=== PATIENT | male | born 1955 | race Caucasian/White ===

== ENCOUNTER 2018-08-18 10:14 | Emergency (ER) | payer OTHER ==
--- NOTE | 2018-08-18 11:11 | EDM.PDOC ---
ED HPI GENERAL MEDICAL PROBLEM - General Chief Complaint: Bite:Animal, Insect Stated Complaint: NOT FEELING WELL/CONCERNED ABOUT TICK BITE Time Seen by Provider: 08/18/18 10:46 Source of Information: Reports: Patient History Limitations: Reports: No Limitations - History of Present Illness INITIAL COMMENTS - FREE TEXT/NARRATIVE: 63-year-old gentleman presents emergency department today complaint of tick bite , he found an engorged tick in his navel he has had some vague symptomology with neck stiffness near syncope over the last couple weeks he was last here July 21 Posterior Neck Pain Score (Numeric/FACES): 5 - Related Data Allergies Allergy/AdvReac Type Severity Reaction Status Date / Time No Known Allergies Allergy Verified 08/18/18 10:40 Past Medical History HEENT History: Reports: Impaired Vision Cardiovascular History: Reports: High Cholesterol, Hypertension Hematologic History: Reports: Other (See Below) Other Hematologic History: sepsis in 2018 - Infectious Disease History Infectious Disease History: Reports: Chicken Pox Social & Family History - Tobacco Use Smoking Status *Q: Former Smoker Used Tobacco, but Quit: Yes Month/Year Tobacco Last Used: years ago - Caffeine Use Caffeine Use: Reports: Coffee - Recreational Drug Use Recreational Drug Use: No ED ROS GENERAL - Review of Systems Review Of Systems: See Below Constitutional: Reports: No Symptoms Respiratory: Reports: No Symptoms Cardiovascular: Reports: No Symptoms Musculoskeletal: Reports: Neck Pain, Muscle Stiffness ED EXAM, ANIMAL BITE - Physical Exam Exam: See Below Text/Narrative:: Examination the Naval he does have a specimen present it is engorged deer tick however examination of the Naval there is tick remnants remaining this is removed with a combination of nasal speculum, 11 blade, splinter forceps, alligator forceps Exam Limited By: No Limitations General Appearance: Alert, WD/WN, No Apparent Distress Course - Vital Signs Last Recorded V/S: Last Vital Signs Temp 99.4 F 08/18/18 10:32 Pulse 108 H 08/18/18 10:32 Resp 16 08/18/18 10:32 BP 192/107 H 08/18/18 10:32 Pulse Ox 98 08/18/18 10:32 Departure - Departure Time of Disposition: 11:11 Disposition: Home, Self-Care 01 Condition: Fair Clinical Impression: Tick bite Qualifiers: Encounter type: initial encounter Qualified Code(s): W57.XXXA - Bitten or stung by nonvenomous insect and other nonvenomous arthropods, initial encounter - Discharge Information Referrals: PCP,None [Primary Care Provider] - Additional Instructions: Take full course of antibiotics, Please followup with your primary care provider in 7-10 days if not better, please call return to the emergency department with worsening of symptoms. - Assessment/Plan Plan: Assessment Acuity = acute Site and laterality = deer tick bites umbilicus Etiology = Ixodes scapularis Manifestations = none Location of injury = Home Lab values = none Plan [Like to treat empirically doxycycline 100 mg by mouth twice a day 21 days follow-up primary care in 7-10 days if no improvement] This note was dictated using [employer] voice recognition software please call with any questions on syntax or grammar.
== END 2018-08-18 11:20 | disposition home or self-care (01) ==
LOC: JP.ED 10:14
DX: S30.861A Insect bite (nonvenomous) of abdominal wall, initial encounter (principal); E78.00 Pure hypercholesterolemia, unspecified; I10 Essential (primary) hypertension; Z87.891 Personal history of nicotine dependence; W57.XXXA Bitten or stung by nonvenomous insect and other nonvenomous arthropods, initial encounter
CPT/HCPCS: 99282